=== PATIENT | male | born 1955 | race Caucasian/White ===

== ENCOUNTER 2018-02-12 10:55 | Outpatient (CLI) | payer OTHER ==
[2018-02-12 13:27] LABS: Hemoglobin 16.3 g/dL (14.0-18.0); Mean Corpuscular HGB CONC 32.7 g/dL (32.0-36.0); Mean Corpuscular Volume 91.7 fL (78.0-98.0); Mean Platelet Volume 9.1 fL (7.4-10.4); Platelet Count 227 thou/uL (130-400); RBC Distribution Width 11.9 % (11.5-14.5); Red Blood Cell (RBC) Count 5.44 mill/uL (4.70-6.10); White Blood Cell (WBC) Count 7.9 thou/uL (4.8-10.8)
[2018-02-12 13:33] LABS: PTT 27.9 SEC (22.9-36.1)
[2018-02-12 13:55] LABS: Anion Gap 13 mmol/L (10-20); BUN (Urea Nitrogen) 22 mg/dL (8.4-25.7); Calc. Creatinine Clearance 0 mL/min (70-130); Carbon Dioxide 27 mmol/L (23-31); Chloride 102 mmol/L (98-107); Estimated GFR-MDRD 71; Glucose 214 mg/dL (80-115); Potassium 4.9 mmol/L (3.5-5.1); Sodium 137 mmol/L (136-145)
--- NOTE | 2018-02-12 15:42 | EKG ---
Test Reason : Blood Pressure : / mmHG Vent. Rate : 071 BPM Atrial Rate : 071 BPM P-R Int : 138 ms QRS Dur : 088 ms QT Int : 398 ms P-R-T Axes : 045 007 012 degrees QTc Int : 432 ms Normal sinus rhythm Normal ECG No previous ECGs available Confirmed by ANTHONY BRISENO ([id number]) on 02/12/2018 3:42:10 PM Referred By: JOSY Confirmed By:ANTHONY BRISENO
== END 2018-02-12 10:56 | disposition home or self-care (01) ==
LOC: LABBT 10:55
PROVIDERS: ATTEND Urology
DX: Z01.818 Encounter for other preprocedural examination (principal)
CPT/HCPCS: 80048; 81001; 85027; 85610; 85730; 87086; 93005; 93010

== ENCOUNTER 2018-02-16 10:36 | Day surgery (SDC) | payer OTHER ==
[2018-02-12 11:25] VITALS: BMI 30.3
[2018-02-16] MEDS ORDERED: cefTRIAXone\\ROCEPHIN 2 GM in Sodium Chloride 0.9% 100 ML IVPB SCH (12:15)
[2018-02-16] MEDS ORDERED: Iothalamate Meglumine 60% 50 ML VIAL FS ONE (12:36)
[2018-02-16] MEDS ORDERED: Fentanyl 100 MCG/2 ML VIAL ONE ×3 (12:52→14:15)
[2018-02-16] MEDS ORDERED: Levofloxacin 500 mg/D5W 100 ml Premix Bag ONE (12:52)
[2018-02-16] MEDS ORDERED: Tamsulosin HCl 0.4 MG CAP ONE (14:16)
[2018-02-16] MEDS ORDERED: Phenazopyridine HCl 97.5 MG TABLET ONE (14:16)
--- NOTE | 2018-02-16 14:21 | OP ---
DATE OF SERVICE: 02/16/2018 PREOPERATIVE DIAGNOSES: 1. This is a 63-year-old male with history of left distal ureteral calculi x2, 4 mm each, on CT, left mid to lower pole stone, 4 mm. 2. Right renal lithiasis x2: Punctate, 2-3 mm respectively. 3. Trilobar hyperplasia of the prostate. POSTOPERATIVE DIAGNOSES: 1. This is a 63-year-old male with history of left distal ureteral calculi x2, 4 mm each, on CT, left mid to lower pole stone, 4 mm. 2. Right renal lithiasis x2: Punctate, 2-3 mm respectively. 3. Trilobar hyperplasia of the prostate. PROCEDURE: Cystoscopy, left retrograde pyelogram, 6 x 30 double-J ureteral stent exchange with dangler taped to the patient's penis, rigid ureteroscopy, flexible ureteroscopy, pyeloscopy, laser lithotripsy, basket extraction of ureteral renal calculi. SURGEON: Tyra Painting D.O. ANESTHESIA: General. COMPLICATIONS: None apparent. DISPOSITION: To recovery room in stable condition. SPECIMEN: Stone for chemical analysis. INDICATIONS FOR THE PROCEDURE AND HISTORY: Mr. Cao is a 63-year-old male whom I seen as any emergency consultation as he was transferred to [facility] emergency room per patient's request as they desire to be treated in the [facility] region. They live in [place] and as they have family in the [place] area, desired to be transferred to the [facility]. He underwent ureteral stent placement due to distal ureteral calculi with intractable pain. He presents today for definitive treatment. Risks and complications of the procedure was reviewed with the patient in detail including, but not limited to: Bleeding, pain, infection, injury to adjacent organs, urosepsis, ureteral stricture, injury to adjacent organs such as ureter, bladder, kidney, possible secondary procedure was reviewed. All questions were answered to his satisfaction and he desired to proceed. DESCRIPTION OF THE PROCEDURE: After an informed consent is signed, the patient is taken to the operating room, placed in a dorsal lithotomy position with the genital area prepped and draped in the usual surgical sterile fashion. Broad- spectrum antibiotics and bilateral BLANCA hose, SCDs were placed. A 21-Prydeinig cystoscope was utilized for cystoscopy which demonstrated again normal anterior , posterior urethra with no stricture. Prostatic urethra entered demonstrating moderate to severe obstruction with trilobar hyperplasia with an intravesical median lobe. The ureteral orifices are approximately 2-3 mm off the reflection of the median lobe. The previously placed ureteral stent was removed to the level of the meatus. A 0.35 sensor wire was then passed through the stent to the left upper pole and the stent completely removed. At this time, a rigid ureteroscopy was performed, which demonstrated the stone in the intramural ureter. Upon engaging the stone, we were able to see the 2 stones stacked on top of each other in the intramural ureter. The stones were able to be maneuvered with minimal laser lithotripsy, which was performed. The stones were basket extracted, intact atraumatically. We surveyed the ureter, which demonstrated no evidence of ureteral injury. Since a Super Stiff wire was passed through a 10 Prydeinig dual-lumen access sheath which was utilized passing to the level of the proximal ureter with the preexisting safety wire. Retrograde pyelogram performed demonstrating proper placement of all wires. An 11/13 Prydeinig navigator was able to be passed to the proximal ureter with ease of 46 cm in length. We surveyed the collecting system demonstrating multiple Rakesh plaques. We laser lithotripsied a tiny stone off the papillae in the upper pole and we did see a stone approximately 3-4 mm, which was basket extracted intact uneventfully. No other stones were present that were amendable to be treated. The ureter was surveyed which demonstrated no evidence of ureteral mucosa trauma or perforation. A 6 x 30 double-J ureteral stent was passed without difficulty over the safety wire and all wires were then subsequently removed. Bladder was completely emptied and he tolerated the procedure well. The stent dangler was then taped to the patient's penis using Mastisol and Tegaderm as there is endoscopic clearance. He will follow up with me next Friday for stent pull and dangler. I do plan still full metabolic panel at a later date. He is discharged with Mantoloking 7.5/325, #20 refill, Flomax #30 one p.o. daily, AZO p.r.n., Colace, ciprofloxacin until followup appointment. DOMINGO
[2018-02-16] MEDS ORDERED: Lidocaine 1% PF 5 ML VIAL ONE (15:14)
[2018-02-16] MEDS ORDERED: Glycopyrrolate 0.2 MG/ML 5 ML SYRINGE ONE (15:14)
[2018-02-16] MEDS ORDERED: Ondansetron PF 4 MG/2 ML Vial ONE (15:14)
[2018-02-16] MEDS ORDERED: PROPOFOL 200 MG/20 ML VIAL ONE (15:14)
[2018-02-16] MEDS ORDERED: Dexamethasone 20 MG/5 ML VIAL ONE (15:14)
[2018-02-16] MEDS ORDERED: HYDROcodone/Acetaminophen 5/325 mg Tablet ONE (15:50)
--- NOTE | 2018-02-16 15:51 | RAD ---
RETROGRADE PYELOGRAM: HISTORY: A 63-year-old male with a history of renal stones. FINDINGS: There is manipulation within the left ureter and upper collecting system. A left ureteral stent was placed. IMPRESSION: Placement of left ureteral stent. POS: [facility]
[2018-02-20 10:21] LABS: CA Oxalate Monohydrate 90 % (.); CA Phosphate 10 % (.); Color Brown (.); Stone Weight 68.7 mg (.)
== END 2018-02-16 17:18 | disposition home or self-care (01) ==
LOC: SDC 10:36
PROVIDERS: ATTEND Urology
PROC: 0TF48ZZ Fragmentation in Left Kidney Pelvis, Via Natural or Artificial Opening Endoscopic (ICD-10-PCS; principal; 2018-02-16)
PROC: 0T778DZ Dilation of Left Ureter with Intraluminal Device, Via Natural or Artificial Opening Endoscopic (ICD-10-PCS; principal; 2018-02-16)
DX: N20.2 Calculus of kidney with calculus of ureter (principal); N40.1 Benign prostatic hyperplasia with lower urinary tract symptoms; E11.9 Type 2 diabetes mellitus without complications; I10 Essential (primary) hypertension; Z79.84 Long term (current) use of oral hypoglycemic drugs; Z79.899 Other long term (current) drug therapy
CPT/HCPCS: 36416; 74420; 82365; 88300; 96374; C1758; C1769; J0696; J1100; J1956; J2001; J2405; J2704; J3010; J7050; Q9961

== ENCOUNTER 2018-07-02 13:46 | Outpatient (CLI) | payer OTHER ==
--- NOTE | 2018-07-02 15:21 | RAD ---
KUB: COMPARISON: Retrograde IVP 02/16/2018. HISTORY: Kidney stone. FINDINGS: Anterior views of the abdomen show a nonobstructive bowel gas pattern. No calcifications are seen pr ojecting over either renal shadow. A stable phlebolith is seen in the left pelvis. No obvious calci fications are seen along the course of the ureters. IMPRESSION: No urinary collecting system calculi identified. POS: [facility]
--- NOTE | 2018-07-02 15:42 | ULT ---
RENAL SONOGRAM: 07/02/18 HISTORY: Abdominal pain. renal stones. FINDINGS: Right kidney is 13.3 cm and left is 12.9 cm. No hydronephrosis. Shadowing echogenicity associated wit h a calyx at the mid to inferior portion of the right kidney correlates with a subtle hyperdensity on recent radiograph. Urinary bladder has a normal appearance. IMPRESSION: Nonobstructing right renal calculus. POS: [facility]
== END 2018-07-02 13:47 | disposition home or self-care (01) ==
LOC: BICULT 13:46
PROVIDERS: ATTEND Urology
DX: Z12.5 Encounter for screening for malignant neoplasm of prostate (principal); N20.0 Calculus of kidney; N20.1 Calculus of ureter; N40.1 Benign prostatic hyperplasia with lower urinary tract symptoms
CPT/HCPCS: 36415; 74018; 76770; 80048; 81001; 83970; 84550; 87086; G0103

== ENCOUNTER 2018-12-30 15:03 | Outpatient (CLI) | payer OTHER ==
--- NOTE | 2018-12-30 15:52 | ULT ---
US Renal Bilateral STANDARD History: M 20.0 kidney stone Comparison: Renal ultrasound June 2018 Findings: Real-time grayscale and color evaluation of the kidneys and urinary bladder was performed. The right kidney measures 14 x 6.5 x 6.3 cm and the left kidney measures 13.5 x 5.5 x 5.6 cm. Urinary bladder is unremarkable. No definite calculus is appreciated. Impression: No definite renal calculus is appreciated. No evidence for obstructive uropathy. CT has g reater sensitivity.
--- NOTE | 2018-12-30 15:55 | RAD ---
XR Abdomen 1 View/KUB History: Kidney stone Comparison: Radiograph June Findings: No definite calculi are seen projecting over the renal shadows. No dilated loops of large o r small bowel. Phleboliths of the pelvis. Mild vascular calcifications. Mild generative changes of both hips and lower facet joints as well as the SI joints. Impression: No definite renal calculus appreciated.
== END 2018-12-30 15:04 | disposition home or self-care (01) ==
LOC: BICULT 15:03
PROVIDERS: ATTEND Urology
DX: N20.0 Calculus of kidney (principal)
CPT/HCPCS: 36415; 74018; 76770; 80048; 81001; 83036; 87086

== ENCOUNTER 2019-01-12 10:20 | Outpatient (CLI) | payer MEDICARE ==
[2019-01-12 12:13] LABS: Hemoglobin 15.8 g/dL (14.0-18.0); Mean Corpuscular HGB CONC 34.8 g/dL (32.0-36.0); Mean Corpuscular Hemoglobin 31.2 pg (27.0-31.0); Mean Corpuscular Volume 89.4 fL (78.0-98.0); Mean Platelet Volume 8.8 fL (7.4-10.4); Platelet Count 192 thou/uL (130-400); RBC Distribution Width 11.9 % (11.5-14.5); Red Blood Cell (RBC) Count 5.09 mill/uL (4.70-6.10); White Blood Cell (WBC) Count 7.4 thou/uL (4.8-10.8)
[2019-01-12 12:21] LABS: Bacteria/HPF None Seen HPF (None Seen); Bilirubin Negative (Negative); Blood, Urine Negative (Negative); Clarity Clear (Clear); Glucose, Urine (Dipstick) Greater than 1000 mg/dL (Negative); Leukocyte Negative Leu/uL (Negative); Nitrite Negative (Negative); Protein, Urine (Dipstick) 50 mg/dL (Neg-Trace); RBC/HPF 0-3 HPF (0-3); Squamous Epithelial 0-3 HPF (0-3); Urobilinogen Normal mg/dL (Less than 2); WBC/HPF 0-3 HPF (0-3)
[2019-01-12 12:23] LABS: PTT 26.3 SEC (22.9-36.1); Prothrombin Time 13.2 SEC (12.0-14.7)
[2019-01-12 12:34] LABS: Anion Gap 9 mmol/L (10-20); BUN (Urea Nitrogen) 22 mg/dL (8.4-25.7); Calc. Creatinine Clearance 0 mL/min (70-130); Calcium 9.4 mg/dL (7.8-10.44); Carbon Dioxide 27 mmol/L (23-31); Chloride 105 mmol/L (98-107); Estimated GFR-MDRD 72; Glucose 215 mg/dL (80-115); Potassium 4.3 mmol/L (3.5-5.1); Sodium 137 mmol/L (136-145)
--- NOTE | 2019-01-13 19:56 | EKG ---
Test Reason : Blood Pressure : / mmHG Vent. Rate : 060 BPM Atrial Rate : 060 BPM P-R Int : 142 ms QRS Dur : 100 ms QT Int : 444 ms P-R-T Axes : 036 -01 063 degrees QTc Int : 444 ms Normal sinus rhythm Normal ECG When compared with ECG of 12-FEB-2018 11:47, Nonspecific T wave abnormality now evident in Lateral leads Confirmed by FARAZ COYNE, SGabriel ([id number]) on 01/13/2019 7:55:56 PM Referred By: JOSÉ MANUEL Confirmed By:DR. Nancy RUTH MD
== END 2019-01-12 10:21 | disposition home or self-care (01) ==
LOC: LABBT 10:20
PROVIDERS: ATTEND Urology
DX: Z01.818 Encounter for other preprocedural examination (principal); Z12.5 Encounter for screening for malignant neoplasm of prostate; N40.1 Benign prostatic hyperplasia with lower urinary tract symptoms; N20.0 Calculus of kidney; E11.9 Type 2 diabetes mellitus without complications; I10 Essential (primary) hypertension; R39.11 Hesitancy of micturition; R33.9 Retention of urine, unspecified; R80.8 Other proteinuria; R81 Glycosuria
CPT/HCPCS: 80048; 81001; 85027; 85610; 85730; 87086; 93005; 93010

== ENCOUNTER 2019-01-18 07:14 | Day surgery (SDC) | payer MEDICARE ==
[2019-01-12 10:36] VITALS: BMI 31.4
[2019-01-18] MEDS ORDERED: Levofloxacin 500 mg/D5W 100 ml Premix Bag ONE (09:03)
[2019-01-18] MEDS ORDERED: Fentanyl 250 MCG/5 ML VIAL ONE (10:47)
[2019-01-18] MEDS ORDERED: Acetaminophen 500 MG TAB PO PRN (12:32)
[2019-01-18] MEDS ORDERED: diphenhydrAMINE 25 MG CAP PO PRN (12:32)
[2019-01-18] MEDS ORDERED: Morphine 2 MG/ML SYRINGE SLOW IVP PRN (12:32)
[2019-01-18] MEDS ORDERED: Morphine 4 MG/ML VIAL SLOW IVP PRN (12:32)
[2019-01-18] MEDS ORDERED: Zolpidem Tartrate 5 MG TAB PO PRN (12:32)
[2019-01-18] MEDS ORDERED: Dextrose 5% in Water 1,000 ML IV PRN (12:32)
[2019-01-18] MEDS ORDERED: diphenhydrAMINE 50 MG/ML VIAL IVP PRN (12:32)
[2019-01-18] MEDS ORDERED: Mag-Al 1200 mg/1200 mg/30 ML UDCUP PO PRN (12:32)
[2019-01-18] MEDS ORDERED: Dextrose 50% Abboject 50 ML SYRINGE SLOW IVP PRN (12:32)
[2019-01-18] MEDS ORDERED: HYDROcodone/Acetaminophen 5/325 mg Tablet PO PRN ×2 (12:32)
[2019-01-18] MEDS ORDERED: Temazepam 15 MG CAP PO PRN (12:35)
[2019-01-18] MEDS ORDERED: Ondansetron PF 4 MG/2 ML Vial ONE (12:41)
[2019-01-18] MEDS ORDERED: Glycopyrrolate 0.2 MG/ML 5 ML SYRINGE ONE (12:41)
[2019-01-18] MEDS ORDERED: Lidocaine 1% PF 5 ML VIAL ONE (12:41)
[2019-01-18] MEDS ORDERED: Dexamethasone 20 MG/5 ML VIAL ONE (12:41)
[2019-01-18] MEDS ORDERED: PROPOFOL 200 MG/20 ML VIAL ONE (12:41)
[2019-01-18] MEDS ORDERED: Rocuronium Bromide 10 MG/ML (10ML VIAL) ONE (12:41)
[2019-01-18] MEDS ORDERED: Fentanyl 100 MCG/2 ML VIAL ONE ×2 (12:54→13:20)
[2019-01-18] MEDS ORDERED: cefTRIAXone\\ROCEPHIN 1 GM in Sodium Chloride 0.9% 100 ML IVPB SCH (13:00)
[2019-01-18 13:08] LABS: #Basophils 0.1 thou/uL (0.0-0.2); #Eosinphils 0.2 thou/uL (0.0-0.7); #Lymphocytes 1.5 thou/uL (1.20-3.40); #Monocytes 0.3 thou/uL (0.11-0.59); #Neutrophils 3.7 thou/uL (1.40-6.50); %Basophils 1.5 % (0.0-1.0); %Eosinophils 3.1 % (0.0-10.0); %Lymphocytes 26.6 % (21.0-51.0); %Neutrophils 63.8 % (42.0-75.0); Hemoglobin 14.5 g/dL (14.0-18.0); Mean Corpuscular HGB CONC 34.5 g/dL (32.0-36.0); Mean Corpuscular Hemoglobin 31.5 pg (27.0-31.0); Mean Corpuscular Volume 91.4 fL (78.0-98.0); Mean Platelet Volume 8.4 fL (7.4-10.4); Platelet Count 173 thou/uL (130-400); RBC Distribution Width 11.9 % (11.5-14.5); Red Blood Cell (RBC) Count 4.61 mill/uL (4.70-6.10); White Blood Cell (WBC) Count 5.8 thou/uL (4.8-10.8)
[2019-01-18] MEDS ORDERED: Non-Formulary Medication 1 EACH PO PRN (13:17)
[2019-01-18] MEDS ORDERED: Promethazine HCl 25 MG/ML VIAL IM/IV PRN (13:17)
[2019-01-18] MEDS ORDERED: Ondansetron HCl/PF 4 MG/2 ML Vial IVP PRN (13:17)
[2019-01-18 13:30] LABS: Anion Gap 13 mmol/L (10-20); BUN (Urea Nitrogen) 22 mg/dL (8.4-25.7); Calc. Creatinine Clearance 104 mL/min (70-130); Calcium 8.5 mg/dL (7.8-10.44); Carbon Dioxide 22 mmol/L (23-31); Chloride 106 mmol/L (98-107); Estimated GFR-MDRD 67; Glucose 201 mg/dL (80-115); Potassium 5.1 mmol/L (3.5-5.1); Sodium 136 mmol/L (136-145)
[2019-01-18] MEDS: cefTRIAXone\\ROCEPHIN 1 GM in Sodium Chloride 0.9% 100 ML IVPB SCH (15:28)
[2019-01-18] MEDS: Insulin Regular 300 UNITS/3 ML VIAL SC PRN ×2 (16:38→21:25)
[2019-01-18] MEDS: Sodium Chloride 0.9% 1,000 ML IV SCH ×2 (17:13→19:58)
--- NOTE | 2019-01-18 17:14 | OP ---
DATE OF PROCEDURE: 01/18/2019 PREOPERATIVE DIAGNOSES: 1. A 63-year-old male with history of benign prostatic hypertrophy, incomplete emptying. 2. Trilobar hyperplasia of the prostate. POSTOPERATIVE DIAGNOSES: 1. A 63-year-old male with history of benign prostatic hypertrophy, incomplete emptying. 2. Trilobar hyperplasia of the prostate. PROCEDURES PERFORMED: 1. Cystoscopy. 2. Transurethral resection of prostate. ANESTHESIA: General. COMPLICATIONS: None apparent. ESTIMATED BLOOD LOSS: Minimal. IV FLUIDS: 800 mL. SPECIMEN: TUR of prostate. DRAINS: A 20-[place] 3-way George catheter, 30 mL balloon on CBI low rate, clear output. DESCRIPTION OF PROCEDURE: Mr. Cao was taken to the operating room, placed in a dorsal lithotomy position with the genital area prepped and draped in the usual surgical sterile fashion. A 22-[place] cystoscope was utilized for cystoscopy, which demonstrated normal anterior and posterior urethra with trilobar hyperplasia of the prostate. There was a small intravesical median lobe. UOs are about 2 to 3 mm away from the reflection of the median lobe. There were no bladder tumors, lesions of concern. At this time, we transitioned to a 26-[place] resectoscope with a visual obturator, which we passed with visual assistance. Transurethral resection of the prostate was performed. We took the median lobe down 1st, flushed to the prostatic urethra. Then, we systematically worked on our lateral lobes, resolving our obstructive lateral lobe and the median lobe component. Excellent hemostasis was obtained. The UOs were kept out of harm's way. All chips were evaluated with the [facility] evacuator. At the end of the procedure, we had a nice open bladder neck for voiding without significant obstruction. A 20[place] 3-way George catheter was passed without any issues, 30 mL insufflated, and attached to CBI and clear output with minimal CBI. He will be kept overnight on CBI and anticipate voiding trial tomorrow morning. Job ID: [id number] [facility]
[2019-01-18] MEDS: Glimepiride 4 MG TAB PO SCH (20:00)
[2019-01-18] MEDS: Docusate 100 MG CAP PO SCH (20:00)
[2019-01-18] MEDS: Famotidine/PF 20 mg/2ml Vial SLOW IVP SCH (20:01)
[2019-01-18] MEDS: Lisinopril 20 MG TAB PO SCH ×2 (20:26→21:26)
[2019-01-18] MEDS ORDERED: Dutasteride 0.5 MG CAP PO SCH (21:00)
[2019-01-18] MEDS ORDERED: INSULIN GLARGINE HUM REC ANLOG 64 UNIT SC SCH (21:00)
[2019-01-18] MEDS ORDERED: Insulin Glargine 51 UNITS in Pre-Filled Syringe 1 EACH SC SCH (21:00)
[2019-01-18] MEDS ORDERED: Famotidine 20 MG TAB PO SCH (21:00)
[2019-01-19] MEDS: Lisinopril 20 MG TAB PO SCH (06:14)
[2019-01-19] MEDS: Sodium Chloride 0.9% 1,000 ML IV SCH (06:15)
[2019-01-19 06:19] LABS: #Basophils 0.1 thou/uL (0.0-0.2); #Eosinphils 0.1 thou/uL (0.0-0.7); #Lymphocytes 2.1 thou/uL (1.20-3.40); #Monocytes 0.9 thou/uL (0.11-0.59); #Neutrophils 7.4 thou/uL (1.40-6.50); %Eosinophils 0.5 % (0.0-10.0); %Lymphocytes 19.6 % (21.0-51.0); %Monocytes 8.8 % (0.0-10.0); %Neutrophils 70.1 % (42.0-75.0); Hemoglobin 14.1 g/dL (14.0-18.0); Mean Corpuscular Hemoglobin 31.8 pg (27.0-31.0); Mean Corpuscular Volume 90.9 fL (78.0-98.0); Mean Platelet Volume 8.6 fL (7.4-10.4); Platelet Count 174 thou/uL (130-400); RBC Distribution Width 11.8 % (11.5-14.5); Red Blood Cell (RBC) Count 4.44 mill/uL (4.70-6.10); White Blood Cell (WBC) Count 10.6 thou/uL (4.8-10.8)
[2019-01-19 06:30] LABS: Anion Gap 12 mmol/L (10-20); BUN (Urea Nitrogen) 19 mg/dL (8.4-25.7); Calc. Creatinine Clearance 117 mL/min (70-130); Calcium 8.2 mg/dL (7.8-10.44); Carbon Dioxide 25 mmol/L (23-31); Chloride 103 mmol/L (98-107); Estimated GFR-MDRD 78; Glucose 178 mg/dL (80-115); Potassium 3.9 mmol/L (3.5-5.1); Sodium 136 mmol/L (136-145)
[2019-01-19] MEDS ORDERED: metFORMIN 500 MG TAB PO SCH (08:00)
[2019-01-19] MEDS: Famotidine/PF 20 mg/2ml Vial SLOW IVP SCH (08:04)
[2019-01-19] MEDS: Glimepiride 4 MG TAB PO SCH (08:04)
[2019-01-19] MEDS: Docusate 100 MG CAP PO SCH (08:04)
[2019-01-19 08:05] VITALS: TEMP 97.9
[2019-01-19] MEDS ORDERED: Tamsulosin HCl 0.4 MG CAP PO SCH (09:00)
[2019-01-19] MEDS ORDERED: Acetaminophen 325 MG TAB PO SCH (09:00)
[2019-01-19] MEDS ORDERED: Alogliptin 25 MG TAB PO SCH (09:00)
[2019-01-19] MEDS ORDERED: Allopurinol 300 MG TAB PO SCH (09:00)
[2019-01-19] MEDS ORDERED: cloNIDine 0.1 MG TAB PO SCH (09:00)
[2019-01-19] MEDS ORDERED: hydrALAZINE 20 MG/ML VIAL SLOW IVP PRN ×2 (09:35)
[2019-01-19] MEDS: Insulin Regular 300 UNITS/3 ML VIAL SC PRN (12:47)
[2019-01-19 13:19] VITALS: BP 163/77
[2019-01-19] MEDS: cefTRIAXone\\ROCEPHIN 1 GM in Sodium Chloride 0.9% 100 ML IVPB SCH (16:37)
--- NOTE | 2019-01-20 04:16 | DIS ---
DATE OF ADMISSION: 01/18/2019 DATE OF DISCHARGE: 01/19/2019 DISPOSITION: To home. PROCEDURES PERFORMED: Cystoscopy, transurethral resection of prostate. BRIEF HOSPITAL COURSE: Mr. Cao is a 63-year-old male with history of trilobar hyperplasia of the prostate with history of incomplete emptying, underwent transurethral resection of prostate uneventfully. He did well postop, CBI was held on postop day #1, urine output is pink to slightly red tinged with no clots. Patient failed his voiding trial, was able to void in small increments, due to large postvoid residual of about 1 L he was discharged with indwelling George catheter to gravity. We'll return to clinic next week for repeat voiding trial. DISCHARGE MEDICATIONS: The patient is to resume his home medications including his diabetic and hypertensive medication with no aspirin or ibuprofen products advised. New prescriptions include ciprofloxacin for course of 7 days, Colace p.r.n., Azo p.r.n., tramadol 50 mg one p.o. q.i.d. p.r.n. followup appointment to be provided. Job ID: [id number] [facility]
== END 2019-01-19 17:45 | disposition home or self-care (01) ==
LOC: SDC 07:14 → SURG A 14:08 → SDC 01-19 17:45
PROVIDERS: ATTEND Urology
PROC: 0VT08ZZ Resection of Prostate, Via Natural or Artificial Opening Endoscopic (ICD-10-PCS; principal; 2019-01-18)
DX: N40.1 Benign prostatic hyperplasia with lower urinary tract symptoms (principal); R39.14 Feeling of incomplete bladder emptying; R39.11 Hesitancy of micturition; R80.8 Other proteinuria; I10 Essential (primary) hypertension; E11.9 Type 2 diabetes mellitus without complications; G47.00 Insomnia, unspecified; M10.9 Gout, unspecified; Z87.891 Personal history of nicotine dependence; Z79.4 Long term (current) use of insulin; Z79.899 Other long term (current) drug therapy; Z88.5 Allergy status to narcotic agent; Z88.8 Allergy status to other drugs, medicaments and biological substances
CPT/HCPCS: 52601; 80048; 82962; 85025; 86850; 86900; 86901; 88305; 90732; G0009; 36415; 36416; 90471; J0360; J0696; J1100; J1815; J1956; J2001; J2405; J2704; J3010; J3490; S0028

== ENCOUNTER 2021-12-04 19:11 | Emergency (ER) | payer MEDICARE ==
[2021-12-04 20:15] LABS: #Basophils 0.1 thou/uL (0.0-0.2); #Eosinphils 0.3 thou/uL (0.0-0.7); #Monocytes 0.8 thou/uL (0.11-0.59); #Neutrophils 3.3 thou/uL (1.40-6.50); %Eosinophils 4.2 % (0.0-10.0); %Lymphocytes 40.1 % (21.0-51.0); %Neutrophils 43.7 % (42.0-75.0); Hemoglobin 17.5 g/dL (14.0-18.0); Mean Corpuscular HGB CONC 34.6 g/dL (32.0-36.0); Mean Corpuscular Hemoglobin 32.2 pg (27.0-31.0); Mean Platelet Volume 8.4 fL (7.4-10.4); Platelet Count 159 thou/uL (130-400); RBC Distribution Width 12.5 % (11.5-14.5); Red Blood Cell (RBC) Count 5.45 mill/uL (4.70-6.10); White Blood Cell (WBC) Count 7.5 thou/uL (4.8-10.8)
[2021-12-04 20:39] LABS: ALT (SGPT) 30 U/L (8-55); AST (SGOT) 24 U/L (5-34); Albumin 4.2 g/dL (3.4-4.8); Alkaline Phosphatase 94 U/L (40-110); Anion Gap 14 mmol/L (10-20); BUN (Urea Nitrogen) 27 mg/dL (8.4-25.7); Bilirubin, Total 0.9 mg/dL (0.2-1.2); Calc. Creatinine Clearance 0 mL/min (70-130); Calcium 9.1 mg/dL (7.8-10.44); Carbon Dioxide 26 mmol/L (23-31); Chloride 107 mmol/L (98-107); Estimated GFR 53; Globulin 3.4 g/dL (2.4-3.5); Glucose 112 mg/dL (80-115); Potassium 4.5 mmol/L (3.5-5.1); Protein, Total 7.6 g/dL (5.8-8.1); Sodium 142 mmol/L (136-145)
== END 2021-12-04 20:55 | disposition home or self-care (01) ==
LOC: ERS 19:11
DX: Z00.00 Encounter for general adult medical examination without abnormal findings (principal); Z87.891 Personal history of nicotine dependence; I10 Essential (primary) hypertension; M1A.9XX0 Chronic gout, unspecified, without tophus (tophi); E11.319 Type 2 diabetes mellitus with unspecified diabetic retinopathy without macular edema
CPT/HCPCS: 36415; 80053; 80061; 83036; 84484; 85025; 93005; 94760

== ENCOUNTER 2023-03-23 10:21 | Inpatient (IN) | payer MEDICARE ==
[2023-03-23 13:54] VITALS: BMI 31.8
[2023-03-23] MEDS ORDERED: Bisacodyl 10 MG SUPP PR PRN (14:14)
[2023-03-23] MEDS ORDERED: Ondansetron PF 4 MG/2 ML Vial IVP PRN (14:14)
[2023-03-23] MEDS ORDERED: Bisacodyl 5 MG TAB PO PRN (14:14)
[2023-03-23] MEDS ORDERED: Senokot S 8.6-50 MG TAB PO PRN (14:14)
[2023-03-23] MEDS ORDERED: Acetaminophen 325 MG TAB PO PRN (14:14)
[2023-03-23] MEDS ORDERED: Dextrose 5% in Water 1,000 ML IV PRN (14:37)
[2023-03-23] MEDS ORDERED: HumaLOG 300 UNITS/3 ML VIAL SC PRN (14:37)
[2023-03-23] MEDS ORDERED: Glucagon 1 MG/ML KIT IM PRN (14:37)
[2023-03-23] MEDS ORDERED: Dextrose 50% Abboject 50 ML SYRINGE SLOW IVP PRN (14:37)
[2023-03-23] MEDS ORDERED: Boostrix 0.5 ML (Tdap) VIAL (>/=7 yrs of age) IM ONE (16:12)
[2023-03-23] MEDS: Sodium Chloride 0.9% 1,000 ML IV SCH (17:18)
[2023-03-23 20:42] LABS: Vancomycin, Trough 22.7 ug/mL
[2023-03-23] MEDS ORDERED: Vancomycin (BATCH) 1.25 GM in Premix 1 BAG IVPB SCH (21:00)
[2023-03-23] MEDS ORDERED: Non-Formulary Item 1 EACH (Acetaminophen [Tylenol Arthritis] 650 MG Tablet.Er) PO SCH (21:00)
[2023-03-23] MEDS ORDERED: Famotidine 20 MG TAB PO SCH (21:00)
[2023-03-23] MEDS: cloNIDine 0.1 MG TAB PO SCH (21:55)
[2023-03-23] MEDS: Cefepime 1 GM in Sodium Chloride 0.9% 100 ML IVPB SCH (21:55)
[2023-03-23] MEDS: Gabapentin 300 MG CAP PO PRN (21:57)
[2023-03-23] MEDS: Nystatin Powder 15 GM BOT TOP SCH (21:57)
[2023-03-23] MEDS: HYDROcodone/Acetaminophen 7.5/325 mg Tablet PO PRN (21:59)
[2023-03-24 05:40] LABS: #Basophils 0.1 thou/uL (0.0-0.2); #Eosinphils 0.3 thou/uL (0.0-0.7); #Monocytes 1.2 thou/uL (0.11-0.59); #Neutrophils 7.7 thou/uL (1.40-6.50); %Basophils 0.7 % (0.0-1.0); %Eosinophils 2.5 % (0.0-10.0); %Lymphocytes 17.2 % (21.0-51.0); %Monocytes 10.3 % (0.0-10.0); %Neutrophils 66.5 % (42.0-75.0); Hematocrit 37.2 % (42.0-52.0); Hemoglobin 12.7 g/dL (14.0-18.0); Mean Corpuscular HGB CONC 34.1 g/dL (32.0-36.0); Mean Corpuscular Hemoglobin 30.9 pg (27.0-31.0); Mean Corpuscular Volume 90.5 fl (78.0-98.0); Mean Platelet Volume 10.5 fL (7.4-10.4); Platelet Count 406 10x3/uL (130-400); RBC Distribution Width 12.4 % (11.5-14.5); Red Blood Cell (RBC) Count 4.11 mill/uL (4.70-6.10); White Blood Cell (WBC) Count 11.6 10x3/uL (4.8-10.8)
[2023-03-24 06:08] LABS: Anion Gap 11 mmol/L (10-20); BUN (Urea Nitrogen) 20 mg/dL (8.4-25.7); Calc. Creatinine Clearance 99 mL/min (70-130); Calcium 8.5 mg/dL (7.8-10.44); Carbon Dioxide 25 mmol/L (23-31); Chloride 103 mmol/L (98-107); Estimated GFR 83; Glucose 157 mg/dL (80-115); Magnesium 1.8 mg/dL (1.6-2.6); Potassium 4.3 mmol/L (3.5-5.1); Sodium 135 mmol/L (136-145)
[2023-03-24 06:13] LABS: Hemoglobin A1c 7.5 % (4.0-6.0)
[2023-03-24] MEDS: Sodium Chloride 0.9% 1,000 ML IV SCH ×2 (06:34→18:46)
[2023-03-24] MEDS: Cefepime 1 GM in Sodium Chloride 0.9% 100 ML IVPB SCH (10:41)
[2023-03-24] MEDS: Lisinopril 20 MG TAB PO SCH (10:42)
[2023-03-24] MEDS: Saccharomyces boulardii 250 MG CAP PO SCH (10:43)
[2023-03-24] MEDS: Famotidine 20 MG TAB PO SCH ×2 (10:43→20:31)
[2023-03-24] MEDS: cloNIDine 0.1 MG TAB PO SCH ×2 (10:44→20:31)
[2023-03-24] MEDS: Vancomycin 1 GM in Premix 1 BAG IVPB SCH ×2 (10:48→20:32)
[2023-03-24] MEDS ORDERED: Promethazine HCl 25 MG/ML VIAL IM PRN (13:44)
[2023-03-24] MEDS ORDERED: Ondansetron HCl/PF 4 MG/2 ML Vial IVP PRN (13:44)
[2023-03-24] MEDS ORDERED: Ketamine In 0.9 % NaCl 50 MG/5 ML SYRINGE ONE (13:45)
[2023-03-24] MEDS ORDERED: PROPOFOL 20 ML ONE (13:45)
[2023-03-24] MEDS ORDERED: PROPOFOL 40 ML ONE (13:46)
[2023-03-24] MEDS ORDERED: Lidocaine 1% PF 5 ML VIAL ONE ×2 (13:46→14:05)
[2023-03-24] MEDS ORDERED: fentaNYL PF 100 MCG/2 ML SYRINGE ONE ×2 (15:20→15:53)
[2023-03-24] MEDS: Lactated Ringer's 1,000 ML IV SCH (17:11)
[2023-03-24] MEDS ORDERED: fentaNYL 50 mcg/mL 1 mL Vial SLOW IVP PRN (17:39)
[2023-03-24] MEDS: Ketorolac Tromethamine 30 MG/ML VIAL IVP SCH (18:01)
[2023-03-24] MEDS: Nystatin Powder 15 GM BOT TOP SCH (18:46)
[2023-03-24] MEDS: Cefepime 2 GM in Sodium Chloride 0.9% 100 ML IVPB SCH (20:31)
[2023-03-24] MEDS: HYDROcodone/Acetaminophen 7.5/325 mg Tablet PO PRN (20:32)
[2023-03-24] MEDS: Zolpidem Tartrate 5 MG TAB PO PRN (21:59)
[2023-03-24] MEDS ORDERED: metroNIDAZOLE 500 MG TAB PO SCH (22:15)
[2023-03-25] MEDS: Ketorolac Tromethamine 30 MG/ML VIAL IVP SCH ×3 (00:18→18:35)
[2023-03-25] MEDS: Sodium Chloride 0.9% 1,000 ML IV SCH ×2 (02:35→18:35)
[2023-03-25] MEDS: Nystatin Powder 15 GM BOT TOP SCH ×3 (02:35→20:23)
[2023-03-25] MEDS: Lactated Ringer's 1,000 ML IV SCH (06:02)
[2023-03-25 07:47] LABS: #Basophils 0.1 thou/uL (0.0-0.2); #Eosinphils 0.3 thou/uL (0.0-0.7); #Monocytes 1.1 thou/uL (0.11-0.59); #Neutrophils 6.9 thou/uL (1.40-6.50); %Basophils 0.5 % (0.0-1.0); %Eosinophils 2.5 % (0.0-10.0); %Lymphocytes 17.4 % (21.0-51.0); %Monocytes 10.5 % (0.0-10.0); %Neutrophils 67.1 % (42.0-75.0); Hematocrit 36.6 % (42.0-52.0); Hemoglobin 12.2 g/dL (14.0-18.0); Mean Corpuscular HGB CONC 33.3 g/dL (32.0-36.0); Mean Corpuscular Hemoglobin 31.4 pg (27.0-31.0); Mean Corpuscular Volume 94.3 fl (78.0-98.0); Mean Platelet Volume 10.9 fL (7.4-10.4); Platelet Count 381 10x3/uL (130-400); RBC Distribution Width 12.4 % (11.5-14.5); Red Blood Cell (RBC) Count 3.88 mill/uL (4.70-6.10); White Blood Cell (WBC) Count 10.3 10x3/uL (4.8-10.8)
[2023-03-25 08:03] LABS: Anion Gap 11 mmol/L (10-20); BUN (Urea Nitrogen) 23 mg/dL (8.4-25.7); Calc. Creatinine Clearance 88 mL/min (70-130); Calcium 8.4 mg/dL (7.8-10.44); Carbon Dioxide 23 mmol/L (23-31); Chloride 102 mmol/L (98-107); Estimated GFR 73; Glucose 182 mg/dL (80-115); Potassium 4.3 mmol/L (3.5-5.1); Sodium 132 mmol/L (136-145)
[2023-03-25] MEDS ORDERED: Iopamidol 370 76% 100 ML VIAL ONE (09:24)
[2023-03-25] MEDS: fentaNYL 50 mcg/mL 1 mL Vial SLOW IVP PRN (09:30)
[2023-03-25] MEDS: Cefepime 2 GM in Sodium Chloride 0.9% 100 ML IVPB SCH ×2 (10:48→20:23)
[2023-03-25] MEDS: Lisinopril 20 MG TAB PO SCH (10:50)
[2023-03-25] MEDS: cloNIDine 0.1 MG TAB PO SCH ×2 (10:51→20:23)
[2023-03-25] MEDS: Saccharomyces boulardii 250 MG CAP PO SCH (10:51)
[2023-03-25] MEDS: Famotidine 20 MG TAB PO SCH ×2 (10:51→20:23)
[2023-03-25] MEDS: metroNIDAZOLE 500 MG TAB PO SCH ×3 (10:51→20:23)
[2023-03-25] MEDS ORDERED: Midazolam HCl 2 mg/2 ml Vial ONE (11:11)
[2023-03-25] MEDS ORDERED: fentaNYL 50 mcg/mL 1 mL Vial ONE (11:11)
[2023-03-25] MEDS ORDERED: Heparin 10,000 UNITS/ 10 ML VIAL ONE (11:11)
[2023-03-25] MEDS: Vancomycin 1 GM in Premix 1 BAG IVPB SCH ×2 (11:30→20:23)
[2023-03-25] MEDS ORDERED: hydrALAZINE 20 MG/ML VIAL ONE (13:13)
[2023-03-25] MEDS ORDERED: Protamine Sulfate 50 MG/5 ML VIAL ONE (13:13)
[2023-03-25] MEDS: HYDROcodone/Acetaminophen 7.5/325 mg Tablet PO PRN ×2 (15:55→23:20)
[2023-03-25] MEDS: Zolpidem Tartrate 5 MG TAB PO PRN (21:53)
[2023-03-26 06:00] LABS: #Basophils 0.1 thou/uL (0.0-0.2); #Eosinphils 0.3 thou/uL (0.0-0.7); #Neutrophils 5.4 thou/uL (1.40-6.50); %Basophils 0.6 % (0.0-1.0); %Eosinophils 3.3 % (0.0-10.0); %Monocytes 11.1 % (0.0-10.0); %Neutrophils 62.5 % (42.0-75.0); Hematocrit 36.9 % (42.0-52.0); Hemoglobin 12.5 g/dL (14.0-18.0); Mean Corpuscular HGB CONC 33.9 g/dL (32.0-36.0); Mean Corpuscular Hemoglobin 31.3 pg (27.0-31.0); Mean Corpuscular Volume 92.5 fl (78.0-98.0); Mean Platelet Volume 10.6 fL (7.4-10.4); Platelet Count 388 10x3/uL (130-400); RBC Distribution Width 12.3 % (11.5-14.5); Red Blood Cell (RBC) Count 3.99 mill/uL (4.70-6.10); White Blood Cell (WBC) Count 8.7 10x3/uL (4.8-10.8)
[2023-03-26 06:46] LABS: Anion Gap 11 mmol/L (10-20); BUN (Urea Nitrogen) 20 mg/dL (8.4-25.7); Calc. Creatinine Clearance 89 mL/min (70-130); Calcium 8.5 mg/dL (7.8-10.44); Carbon Dioxide 26 mmol/L (23-31); Chloride 100 mmol/L (98-107); Estimated GFR 73; Glucose 186 mg/dL (80-115); Potassium 3.9 mmol/L (3.5-5.1); Sodium 133 mmol/L (136-145)
[2023-03-26] MEDS: HumaLOG 300 UNITS/3 ML VIAL SC PRN ×2 (06:52→18:38)
[2023-03-26] MEDS: metroNIDAZOLE 500 MG TAB PO SCH ×3 (09:25→20:21)
[2023-03-26] MEDS: Saccharomyces boulardii 250 MG CAP PO SCH (09:25)
[2023-03-26] MEDS: Vancomycin 1 GM in Premix 1 BAG IVPB SCH ×2 (09:25→20:21)
[2023-03-26] MEDS: Cefepime 2 GM in Sodium Chloride 0.9% 100 ML IVPB SCH ×2 (09:25→20:21)
[2023-03-26] MEDS: cloNIDine 0.1 MG TAB PO SCH ×2 (09:26→20:20)
[2023-03-26] MEDS: Gabapentin 300 MG CAP PO PRN (09:26)
[2023-03-26] MEDS: Famotidine 20 MG TAB PO SCH ×2 (09:26→20:21)
[2023-03-26] MEDS: Lisinopril 20 MG TAB PO SCH (09:27)
[2023-03-26] MEDS: Clopidogrel Bisulfate 75 MG TAB PO SCH (09:27)
[2023-03-26] MEDS: Nystatin Powder 15 GM BOT TOP SCH ×2 (09:27→20:21)
[2023-03-26] MEDS: HYDROcodone/Acetaminophen 7.5/325 mg Tablet PO PRN (13:01)
[2023-03-26 20:18] LABS: Vancomycin, Trough 19.6 ug/mL
[2023-03-26] MEDS: Atorvastatin Calcium 40 MG TAB PO SCH (20:21)
[2023-03-26] MEDS: Zolpidem Tartrate 5 MG TAB PO PRN (22:04)
[2023-03-27 05:30] LABS: #Basophils 0.1 thou/uL (0.0-0.2); #Eosinphils 0.3 thou/uL (0.0-0.7); #Monocytes 1.1 thou/uL (0.11-0.59); #Neutrophils 5.7 thou/uL (1.40-6.50); %Basophils 0.9 % (0.0-1.0); %Eosinophils 3.1 % (0.0-10.0); %Lymphocytes 21.4 % (21.0-51.0); %Monocytes 11.7 % (0.0-10.0); %Neutrophils 61.1 % (42.0-75.0); Hematocrit 38.4 % (42.0-52.0); Hemoglobin 13.1 g/dL (14.0-18.0); Mean Corpuscular HGB CONC 34.1 g/dL (32.0-36.0); Mean Corpuscular Volume 90.8 fl (78.0-98.0); Mean Platelet Volume 10.7 fL (7.4-10.4); Platelet Count 435 10x3/uL (130-400); RBC Distribution Width 12.6 % (11.5-14.5); Red Blood Cell (RBC) Count 4.23 mill/uL (4.70-6.10); White Blood Cell (WBC) Count 9.3 10x3/uL (4.8-10.8)
[2023-03-27 05:51] LABS: Anion Gap 11 mmol/L (10-20); BUN (Urea Nitrogen) 25 mg/dL (8.4-25.7); Calc. Creatinine Clearance 77 mL/min (70-130); Calcium 8.7 mg/dL (7.8-10.44); Carbon Dioxide 25 mmol/L (23-31); Chloride 100 mmol/L (98-107); Estimated GFR 62; Glucose 223 mg/dL (80-115); Potassium 4.2 mmol/L (3.5-5.1); Sodium 132 mmol/L (136-145)
[2023-03-27] MEDS: HumaLOG 300 UNITS/3 ML VIAL SC PRN ×2 (06:08→18:35)
[2023-03-27] MEDS: Cefepime 2 GM in Sodium Chloride 0.9% 100 ML IVPB SCH (09:30)
[2023-03-27] MEDS: Vancomycin 1 GM in Premix 1 BAG IVPB SCH (09:31)
[2023-03-27] MEDS: Nystatin Powder 15 GM BOT TOP SCH (09:31)
[2023-03-27] MEDS: Clopidogrel Bisulfate 75 MG TAB PO SCH (09:32)
[2023-03-27] MEDS: Famotidine 20 MG TAB PO SCH ×2 (09:32→20:34)
[2023-03-27] MEDS: Saccharomyces boulardii 250 MG CAP PO SCH (09:32)
[2023-03-27] MEDS: Lisinopril 20 MG TAB PO SCH (09:32)
[2023-03-27] MEDS: cloNIDine 0.1 MG TAB PO SCH ×2 (09:32→20:34)
[2023-03-27] MEDS: metroNIDAZOLE 500 MG TAB PO SCH ×3 (09:32→20:34)
[2023-03-27] MEDS: HYDROcodone/Acetaminophen 7.5/325 mg Tablet PO PRN ×2 (12:51→22:44)
[2023-03-27] MEDS: cefTRIAXone\\ROCEPHIN 2 GM in Sodium Chloride 0.9% 100 ML IVPB SCH (12:51)
[2023-03-27] MEDS: fentaNYL 50 mcg/mL 1 mL Vial SLOW IVP PRN (14:41)
[2023-03-27] MEDS ORDERED: hydrALAZINE 20 MG/ML VIAL SLOW IVP SCH (15:00)
[2023-03-27] MEDS: Atorvastatin Calcium 40 MG TAB PO SCH (20:34)
[2023-03-27] MEDS ORDERED: Insulin Glargine 30 UNITS/0.3 ML VIAL SC SCH (21:00)
[2023-03-27] MEDS: Zolpidem Tartrate 5 MG TAB PO PRN (22:44)
[2023-03-28] MEDS: HumaLOG 300 UNITS/3 ML VIAL SC PRN ×3 (05:24→16:26)
[2023-03-28] MEDS: cloNIDine 0.1 MG TAB PO SCH (08:53)
[2023-03-28] MEDS: Saccharomyces boulardii 250 MG CAP PO SCH (08:53)
[2023-03-28] MEDS: Clopidogrel Bisulfate 75 MG TAB PO SCH (08:53)
[2023-03-28] MEDS: metroNIDAZOLE 500 MG TAB PO SCH ×2 (08:54→15:51)
[2023-03-28] MEDS: Famotidine 20 MG TAB PO SCH (08:54)
[2023-03-28] MEDS: Lisinopril 20 MG TAB PO SCH (08:54)
[2023-03-28] MEDS ORDERED: NIFEdipine XL 60 MG ER.TAB PO SCH (09:00)
[2023-03-28] MEDS ORDERED: Insulin Glargine 30 UNITS/0.3 ML VIAL SC SCH (09:00)
[2023-03-28] MEDS: Nystatin Powder 15 GM BOT TOP SCH ×2 (09:02)
[2023-03-28] MEDS: HYDROcodone/Acetaminophen 7.5/325 mg Tablet PO PRN (10:23)
[2023-03-28 12:07] VITALS: TEMP 98.5
[2023-03-28] MEDS: cefTRIAXone\\ROCEPHIN 2 GM in Sodium Chloride 0.9% 100 ML IVPB SCH (12:52)
[2023-03-28 16:14] VITALS: BP 113/55
[2023-03-28] MEDS: fentaNYL 50 mcg/mL 1 mL Vial SLOW IVP PRN (16:23)
[2023-03-28] MEDS ORDERED: Sulfameth/Trimethoprim DS 800-160mg TAB PO SCH (21:00)
== END 2023-03-28 18:49 | DRG 579 ==
LOC: SURG B 12:29
PROVIDERS: ADMIT Family Medicine; ATTEND Internal Medicine
PROC: 3E03329 Introduction of Other Anti-infective into Peripheral Vein, Percutaneous Approach (ICD-10-PCS; 2023-03-23)
PROC: 0Y6V0Z0 Detachment at Right 4th Toe, Complete, Open Approach (ICD-10-PCS; principal; 2023-03-25)
PROC: 0LBV0ZZ Excision of Right Foot Tendon, Open Approach (ICD-10-PCS; 2023-03-25)
PROC: 5A09357 Assistance with Respiratory Ventilation, Less than 24 Consecutive Hours, Continuous Positive Airway Pressure (ICD-10-PCS; 2023-03-25)
DX: L03.115 Cellulitis of right lower limb (principal); A41.9 Sepsis, unspecified organism; B37.89 Other sites of candidiasis; M86.8X7 Other osteomyelitis, ankle and foot; N17.9 Acute kidney failure, unspecified; E87.1 Hypo-osmolality and hyponatremia; I73.9 Peripheral vascular disease, unspecified; E11.69 Type 2 diabetes mellitus with other specified complication; M79.89 Other specified soft tissue disorders; N18.30 Chronic kidney disease, stage 3 unspecified; E11.22 Type 2 diabetes mellitus with diabetic chronic kidney disease; R53.1 Weakness; M10.9 Gout, unspecified; I12.9 Hypertensive chronic kidney disease with stage 1 through stage 4 chronic kidney disease, or unspecified chronic kidney disease; D72.829 Elevated white blood cell count, unspecified; E11.40 Type 2 diabetes mellitus with diabetic neuropathy, unspecified; D63.1 Anemia in chronic kidney disease; B96.20 Unspecified Escherichia coli [E. coli] as the cause of diseases classified elsewhere; B96.4 Proteus (mirabilis) (morganii) as the cause of diseases classified elsewhere
CPT/HCPCS: 36246; 36415; 36416; 37228; 37246; 75716; 75736; 80048; 80202; 83036; 83735; 85025; 85347; 86850; 86900; 86901; 87070; 87076; 87077; 87186; 87205; 88305; 88311; 97139; 99152; 99153; C1725; C1769; C1887; J0360; J0692; J0696; J1644; J1815; J1885; J2250; J2704; J2720; J3010; J3370; J3370-JW; J3490; J7050; J7120; Q9967

== ENCOUNTER 2024-12-22 19:37 | Emergency (ER) | payer MEDICARE ==
[2024-12-22] MEDS ORDERED: Ondansetron PF 4 MG/2 ML Vial ONE (20:16)
[2024-12-22 20:22] LABS: #Basophils 0.03 10x3/uL (0.0-0.2); #Eosinophils 0.20 10x3/uL (0.0-0.7); #Monocytes 0.70 10x3/uL (0.11-0.59); #Neutrophils 2.90 10x3/uL (1.40-6.50); %Basophils 0.5 % (0.0-1.0); %Eosinophils 3.2 % (0.0-10.0); %Lymphocytes 38.3 % (21.0-51.0); %Monocytes 11.3 % (0.0-10.0); %Neutrophils 46.5 % (42.0-75.0); Hematocrit 40.6 % (42.0-52.0); Hemoglobin 13.6 g/dL (14.0-18.0); Mean Corpuscular Hemoglobin 31.2 pg (27.0-31.0); Mean Corpuscular Volume 93.1 fL (78.0-98.0); Platelet Count 199 10x3/uL (130-400); Red Blood Cell (RBC) Count 4.36 mill/uL (4.70-6.10); White Blood Cell (WBC) Count 6.22 10x3/uL (4.8-10.8)
[2024-12-22 20:59] LABS: ALT (SGPT) 23 U/L (Less than 45); AST (SGOT) 25 U/L (11-34); Albumin 3.7 g/dL (3.1-4.5); Alkaline Phosphatase 89 U/L (40-110); Anion Gap 14 mmol/L (10-20); BUN (Urea Nitrogen) 33 mg/dL (8.4-25.7); Bilirubin, Total 0.6 mg/dL (0.3-1.2); Calc. Creatinine Clearance 0 mL/min (70-130); Calcium 9.0 mg/dL (7.8-10.44); Carbon Dioxide 26 mmol/L (23-31); Chloride 105 mmol/L (98-107); Globulin 3.0 g/dL (2.4-3.5); Glucose 155 mg/dL (80-115); Lipase 16 U/L (8-78); Potassium 4.6 mmol/L (3.5-5.1); Sodium 140 mmol/L (136-145)
[2024-12-22 21:53] LABS: Bacteria/HPF None Seen HPF (None Seen); CAUTI Indications for Culture Dysuria,urgency,freq; Glucose, Urine (Dipstick) 30 mg/dL (Negative); Leukocyte Negative Leu/uL (Negative); Protein, Urine (Dipstick) Negative (Neg-Trace); RBC/HPF 0-3 HPF (0-3); Specific Gravity, Urine 1.028 (1.002-1.036); WBC/HPF 0-3 HPF (0-3)
[2024-12-22 21:55] LABS: Urine Culture Reflex No No
== END 2024-12-23 00:47 | disposition home or self-care (01) ==
LOC: ERS 19:37
DX: N20.2 Calculus of kidney with calculus of ureter (principal); I10 Essential (primary) hypertension; Z87.891 Personal history of nicotine dependence; Z79.899 Other long term (current) drug therapy; Z79.4 Long term (current) use of insulin
CPT/HCPCS: 74176; 80053; 81001; 83690; 85025; J2405; J3010; 51702; 51798; 96374; 96375

== ENCOUNTER 2024-12-25 16:25 | Emergency (ER) | payer MEDICARE ==
[2024-12-25 17:33] LABS: #Basophils Less than 0.03 10x3/uL (0.0-0.2); #Eosinophils 0.14 10x3/uL (0.0-0.7); #Monocytes 0.91 10x3/uL (0.11-0.59); #Neutrophils 5.02 10x3/uL (1.40-6.50); %Basophils 0.2 % (0.0-1.0); %Eosinophils 1.7 % (0.0-10.0); %Lymphocytes 26.9 % (21.0-51.0); %Monocytes 10.9 % (0.0-10.0); %Neutrophils 60.1 % (42.0-75.0); Hematocrit 39.4 % (42.0-52.0); Hemoglobin 13.0 g/dL (14.0-18.0); Mean Corpuscular Hemoglobin 31.0 pg (27.0-31.0); Mean Corpuscular Volume 93.8 fL (78.0-98.0); Platelet Count 209 10x3/uL (130-400); Red Blood Cell (RBC) Count 4.20 mill/uL (4.70-6.10); White Blood Cell (WBC) Count 8.36 10x3/uL (4.8-10.8)
[2024-12-25 17:47] LABS: ALT (SGPT) 17 U/L (Less than 45); AST (SGOT) 17 U/L (11-34); Albumin 3.6 g/dL (3.1-4.5); Alkaline Phosphatase 96 U/L (40-110); Anion Gap 15 mmol/L (10-20); BUN (Urea Nitrogen) 26 mg/dL (8.4-25.7); Bilirubin, Total 0.4 mg/dL (0.3-1.2); Calc. Creatinine Clearance 0 mL/min (70-130); Calcium 9.2 mg/dL (7.8-10.44); Carbon Dioxide 25 mmol/L (23-31); Chloride 105 mmol/L (98-107); Globulin 3.1 g/dL (2.4-3.5); Glucose 208 mg/dL (80-115); Potassium 4.7 mmol/L (3.5-5.1); Sodium 140 mmol/L (136-145)
[2024-12-25] MEDS ORDERED: Ketorolac Tromethamine 30 MG (1 mL) VIAL ONE (17:47)
[2024-12-25] MEDS ORDERED: Ondansetron PF 4 MG/2 ML Vial ONE (17:48)
[2024-12-25 18:27] LABS: Bacteria/HPF None Seen HPF (None Seen); CAUTI Indications for Culture Dysuria,urgency,freq; Glucose, Urine (Dipstick) 100 mg/dL (Negative); Leukocyte 75 Leu/uL (Negative); Protein, Urine (Dipstick) 20 mg/dL (Neg-Trace); RBC/HPF Greater than 50 HPF (0-3); Specific Gravity, Urine 1.023 (1.002-1.036)
[2024-12-25 18:28] LABS: Urine Culture Reflex No No
== END 2024-12-25 19:38 | disposition home or self-care (01) ==
LOC: ERS 16:25
DX: R33.9 Retention of urine, unspecified (principal); T85.9XXA Unspecified complication of internal prosthetic device, implant and graft, initial encounter; I10 Essential (primary) hypertension; Z87.891 Personal history of nicotine dependence
CPT/HCPCS: 80053; 81001; 85025; J1885; J2405; J3010; 36415; 96374; 96375; 96376